=== PATIENT | male | born 1975 | race African-American/Black ===

== ENCOUNTER 2016-12-17 17:01 | Emergency (ER) | payer SELFPAY ==
[2016-12-17 17:16] VITALS: BP 136/69; PULSE 73; TEMP 98.4; BMI 28.7
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
== END 2016-12-17 18:34 | disposition home or self-care (01) ==
LOC: JERFT 17:01
DX: M54.5 Low back pain (principal); V49.49XA Driver injured in collision with other motor vehicles in traffic accident, initial encounter; Y92.414 Local residential or business street as the place of occurrence of the external cause; Y93.89 Activity, other specified
CPT/HCPCS: 99281-25

== ENCOUNTER 2017-10-22 15:51 | Emergency (ER) | payer OTHER ==
--- NOTE | 2017-10-22 15:58 | PDOC ---
Rapid Medical Evaluation Time Seen by Provider: 10/22/17 15:53 Medical Evaluation: Allergies Allergy/AdvReac Type Severity Reaction Status Date / Time No Known Allergies Allergy Verified 12/17/16 17:16 I have performed a brief in-person evaluation of this patient. The patient presents with a chief complaint of: left sided low back pain since early this morning Pertinent physical exam findings: No CVA TTP. No midline lumbar spine TTP. Pain is not able to be reproduced. No flank pain. I have ordered the following: UA/culture The patient will proceed to the ED for further evaluation.
[2017-10-22 16:00] VITALS: BP 153/84; PULSE 77; TEMP 98.3
[2017-10-22 16:45] LABS: URINE APPEARANCE CLEAR; URINE BILIRUBIN NEGATIVE (NEGATIVE); URINE BLOOD 1+ (NEGATIVE); URINE COLOR LTYELLOW; URINE GLUCOSE (UA) NEGATIVE (NEGATIVE); URINE KETONE NEGATIVE (NEGATIVE); URINE LEUK ESTERASE NEGATIVE (NEGATIVE); URINE NITRITE NEGATIVE (NEGATIVE); URINE PROTEIN NEGATIVE (NEGATIVE); URINE UROBILINOGEN NEGATIVE mg/dL (0.2-1.0)
[2017-10-22] MEDS ORDERED: KETOROLAC TROMETHAMINE 60 MG/2 ML VIAL IM ONE (16:57)
[2017-10-22 17:03] LABS: URINE BACTERIA RARE /hpf (NONE SEEN); URINE MUCUS RARE
[2017-10-22] MEDS ORDERED: KETOROLAC TROMETHAMINE 60 MG/2 ML VIAL ONE (17:08)
--- NOTE | 2017-10-22 17:18 | PDOC ---
History of Present Illness - General Chief Complaint: Back Pain Stated Complaint: BACK PAIN Time Seen by Provider: 10/22/17 15:53 Past History - Past Medical History Allergies/Adverse Reactions: Allergies Allergy/AdvReac Type Severity Reaction Status Date / Time No Known Allergies Allergy Verified 10/22/17 15:57 Home Medications: Ambulatory Orders Ibuprofen 800 mg PO TID #30 tablet 10/22/17 Tamsulosin HCl [Flomax] 0.4 mg PO DAILY #7 capsule 10/22/17 COPD: No Other medical history: denies. - Suicide/Smoking/Psychosocial Hx Smoking History: Never smoked Hx Alcohol Use: No Drug/Substance Use Hx: No *Physical Exam - Vital Signs Last Vital Signs Temp Pulse Resp BP Pulse Ox 98.3 F 77 19 153/84 100 10/22/17 15:57 10/22/17 15:57 10/22/17 15:57 10/22/17 15:57 10/22/17 15:57 ED Treatment Course - ADDITIONAL ORDERS Additional order review: Laboratory Results 10/22/17 16:30 Urine Color Ltyellow Urine Appearance Clear Urine pH 5.0 Ur Specific Cobb 1.014 Urine Protein Negative Urine Glucose (UA) Negative Urine Ketones Negative Urine Blood 1+ H Urine Nitrite Negative Urine Bilirubin Negative Urine Urobilinogen Negative Ur Leukocyte Esterase Negative Urine WBC (Auto) 1 Urine RBC (Auto) 4 Urine Bacteria Rare Urine Mucus Rare - Medications Given in the ED: ED Medications Discontinued Medications Generic Name Dose Route Start Last Admin Trade Name Freq PRN Reason Stop Dose Admin Ketorolac Tromethamine 60 mg 10/22/17 16:57 10/22/17 17:10 Toradol Injection - IM 10/22/17 16:58 60 mg ONCE ONE Administration *DC/Admit/Observation/Transfer Diagnosis at time of Disposition: Renal calculus - Discharge Dispostion Disposition: HOME Condition at time of disposition: Stable Admit: No - Referrals Referrals: Gennaro Zaman MD [Staff Physician] - - Patient Instructions Printed Discharge Instructions: DI for Kidney Stones Additional Instructions: You have a kidney stone. It is small, 2-3 mm. It should pass on its own. Please drink plenty of fluids to help the stone pass. You may take 800 mg of ibuprofen every 8 hours for pain. Please take the Flomax daily to help the stone pass. Follow-up with urology in the next week. Referral has been provided for you. Return to the emergency department if you develop fevers, chills, increasing back pain, nausea, vomiting or have any changes in your symptoms. - Post Discharge Activity Forms/Work/School Notes: Back to Work
== END 2017-10-22 19:03 | disposition home or self-care (01) ==
LOC: JERFT 15:51
PROC: 3E0233Z Introduction of Anti-inflammatory into Muscle, Percutaneous Approach (ICD-10-PCS; principal; 2017-10-22)
DX: N13.2 Hydronephrosis with renal and ureteral calculous obstruction (principal)
CPT/HCPCS: 74176; 81003; 81015; 87086; 96372; 99281-25